=== PATIENT | male | born 1995 | race Two or more races ===

== ENCOUNTER 2024-10-08 23:01 | Emergency (ER) | payer MEDICAID ==
[~2024-10-08] VITALS: Ht 165.1 cm; Wt 58.0 kg
[2024-10-08 23:08] VITALS: O2SAT 98
[2024-10-08 23:20] VITALS: BP 115/88; PULSE 73; RESP 18; TEMP 36.6; O2SAT 97
[2024-10-08] MEDS ORDERED: HYDR-459 MT (23:45)
[2024-10-08] MEDS ORDERED: LORAZEPAM 1MG TABLET PO ONE (23:45)
[2024-10-09] MEDS ORDERED: ALPRAZOLAM 0.5 MG TABLET PO ONE
[2024-10-09] MEDS: ALPRAZOLAM 0.25 MG TABLET PO NR (00:11)
[2024-10-09] MEDS ORDERED: QUET25TA MT (21:54)
== END 2024-10-09 00:26 | disposition home or self-care (01) ==
LOC: ER 23:01
DX: Z76.0 Encounter for issue of repeat prescription (principal); F41.9 Anxiety disorder, unspecified; F20.9 Schizophrenia, unspecified; F31.9 Bipolar disorder, unspecified; F41.0 Panic disorder [episodic paroxysmal anxiety]
CPT/HCPCS: 99283

== ENCOUNTER 2024-10-09 20:50 | Emergency (ER) | payer MEDICAID ==
[~2024-10-09] VITALS: Ht 167.6 cm; Wt 60.2 kg
[~2024-10-09 20:50] MED LIST: HYDR-459 MT
[2024-10-09 21:21] VITALS: O2SAT 99
[2024-10-09 21:22] VITALS: BP 116/79; PULSE 87; RESP 16; TEMP 37; O2SAT 97
[2024-10-09] MEDS ORDERED: QUET25TA MT (21:54)
[2024-10-09] MEDS: QUETIAPINE FUMARATE 25MG TABLET PO SCH (22:12)
[2024-10-09] MEDS: ALPRAZOLAM 0.5 MG TABLET PO ONE (22:13)
== END 2024-10-09 22:16 | disposition home or self-care (01) ==
LOC: ER 20:50
DX: F41.9 Anxiety disorder, unspecified (principal); F12.10 Cannabis abuse, uncomplicated; F31.9 Bipolar disorder, unspecified; Z76.0 Encounter for issue of repeat prescription; Z88.3 Allergy status to other anti-infective agents
CPT/HCPCS: 99283

== ENCOUNTER 2024-10-10 16:20 | Emergency (ER) | payer MEDICAID ==
[~2024-10-10] VITALS: Ht 165.1 cm; Wt 58.9 kg
[~2024-10-10 16:20] MED LIST changes: +QUET25TA MT
[2024-10-10 16:34] VITALS: TEMP 37.1; O2SAT 100
[2024-10-10] MEDS: ALPRAZOLAM 0.5 MG TABLET PO ONE (19:31)
[2024-10-10 19:43] VITALS: BP 114/78; PULSE 57; RESP 12; O2SAT 97
== END 2024-10-10 19:42 | disposition home or self-care (01) ==
LOC: ER 16:20
DX: F41.9 Anxiety disorder, unspecified (principal); F12.10 Cannabis abuse, uncomplicated; F31.9 Bipolar disorder, unspecified; Z91.048 Other nonmedicinal substance allergy status
CPT/HCPCS: 99283

== ENCOUNTER 2024-10-11 10:34 | Emergency (ER) | payer MEDICAID ==
[~2024-10-11] VITALS: Ht 165.1 cm; Wt 59.0 kg
[2024-10-11 11:01] VITALS: O2SAT 98
[2024-10-11] MEDS: ALPRAZOLAM 0.25 MG TABLET PO ONE (11:34)
[2024-10-11 11:37] VITALS: BP 108/71; PULSE 60; RESP 20; O2SAT 98
== END 2024-10-11 12:12 | disposition home or self-care (01) ==
LOC: ER 10:34
DX: F41.9 Anxiety disorder, unspecified (principal); Z76.0 Encounter for issue of repeat prescription; F20.9 Schizophrenia, unspecified; F12.90 Cannabis use, unspecified, uncomplicated; F31.9 Bipolar disorder, unspecified; Z79.899 Other long term (current) drug therapy; Z87.891 Personal history of nicotine dependence
CPT/HCPCS: 99283

== ENCOUNTER 2024-10-12 19:57 | Emergency (ER) | payer MEDICAID ==
[~2024-10-12] VITALS: Ht 165.1 cm; Wt 59.0 kg
[2024-10-12 19:59] VITALS: O2SAT 97
[2024-10-12 20:25] VITALS: BP 126/62; PULSE 58; RESP 18; TEMP 36.9; O2SAT 100
[2024-10-12] MEDS ORDERED: ALPRAZOLAM 0.25 MG TABLET PO ONE (21:30)
[2024-10-12] MEDS: ALPRAZOLAM 0.5 MG TABLET PO ONE (22:03)
== END 2024-10-12 22:09 | disposition home or self-care (01) ==
LOC: ER 19:57
DX: Z00.8 Encounter for other general examination (principal); F12.90 Cannabis use, unspecified, uncomplicated; F20.9 Schizophrenia, unspecified; Z79.899 Other long term (current) drug therapy
CPT/HCPCS: 99283

== ENCOUNTER 2024-10-13 10:34 | Emergency (ER) | payer MEDICAID ==
[~2024-10-13] VITALS: Ht 165.1 cm; Wt 58.0 kg
[2024-10-13 10:57] VITALS: O2SAT 100
[2024-10-13 11:14] VITALS: BP 105/65; PULSE 53; RESP 16; TEMP 36.8; O2SAT 98
[2024-10-13] MEDS ORDERED: ALPRAZOLAM 0.5 MG TABLET PO ONE (11:30)
[2024-10-13] MEDS: ALPRAZOLAM 0.25 MG TABLET PO NR (11:45)
== END 2024-10-13 11:48 | disposition home or self-care (01) ==
LOC: ER 10:34
DX: F41.8 Other specified anxiety disorders (principal); Z76.0 Encounter for issue of repeat prescription; F32.A Depression, unspecified; F12.90 Cannabis use, unspecified, uncomplicated; Z79.899 Other long term (current) drug therapy
CPT/HCPCS: 99283

== ENCOUNTER 2024-10-15 19:59 | Emergency (ER) | payer MEDICAID ==
[~2024-10-15] VITALS: Ht 165.1 cm; Wt 59.0 kg
[2024-10-15 20:06] VITALS: O2SAT 96
[2024-10-15] MEDS: ALPRAZOLAM 0.5 MG TABLET PO ONE (22:02)
[2024-10-15 22:04] VITALS: BP 114/77; PULSE 60; RESP 18; TEMP 37; O2SAT 98
== END 2024-10-15 22:05 | disposition home or self-care (01) ==
LOC: ER 19:59
DX: F41.1 Generalized anxiety disorder (principal); Z76.0 Encounter for issue of repeat prescription; F20.9 Schizophrenia, unspecified; Z79.899 Other long term (current) drug therapy
CPT/HCPCS: 99283

== ENCOUNTER 2024-10-16 11:41 | Emergency (ER) | payer MEDICAID ==
[~2024-10-16] VITALS: Ht 165.1 cm; Wt 59.0 kg
[2024-10-16 11:46] VITALS: O2SAT 98
[2024-10-16] MEDS ORDERED: ALPRAZOLAM 0.5 MG TABLET PO ONE (13:15)
[2024-10-16] MEDS: ALPRAZOLAM 0.25 MG TABLET PO NR (13:45)
[2024-10-16 13:58] VITALS: BP 109/66; PULSE 58; RESP 12; TEMP 37; O2SAT 99
== END 2024-10-16 14:00 | disposition home or self-care (01) ==
LOC: ER 11:41
DX: F41.9 Anxiety disorder, unspecified (principal); F20.9 Schizophrenia, unspecified; F12.90 Cannabis use, unspecified, uncomplicated; Z79.899 Other long term (current) drug therapy
CPT/HCPCS: 99283; A4606

== ENCOUNTER 2024-10-17 19:54 | Emergency (ER) | payer MEDICAID ==
[~2024-10-17] VITALS: Ht 165.1 cm; Wt 59.0 kg
[2024-10-17 20:00] VITALS: O2SAT 97
[2024-10-17 20:39] VITALS: BP 134/82; PULSE 80; RESP 18; TEMP 36.8; O2SAT 100
[2024-10-17] MEDS ORDERED: HALOPERIDOL LACTATE 5MG/ML VIAL IM STA (20:45)
== END 2024-10-17 21:00 ==
LOC: ER 19:54
DX: R45.851 Suicidal ideations (principal); Z53.21 Procedure and treatment not carried out due to patient leaving prior to being seen by health care provider

== ENCOUNTER 2025-05-25 13:43 | Emergency (ER) | payer SELFPAY ==
[~2025-05-25] VITALS: Ht 170.2 cm; Wt 64.0 kg
[2025-05-25 13:45] VITALS: BP 158/88; PULSE 120; RESP 16; TEMP 36.8; O2SAT 98
[2025-05-25] MEDS ORDERED: CYCL10TA21 MT (21:30)
[2025-05-25] MEDS ORDERED: IBUP-1455 MT (21:30)
== END 2025-05-25 16:25 | disposition left against medical advice (07) ==
LOC: ER 13:43
DX: M79.662 Pain in left lower leg (principal); Z53.21 Procedure and treatment not carried out due to patient leaving prior to being seen by health care provider
CPT/HCPCS: 99281; A4606

== ENCOUNTER 2025-05-25 18:05 | Emergency (ER) | payer SELFPAY ==
[~2025-05-25] VITALS: Ht 165.1 cm; Wt 61.0 kg
[2025-05-25 18:07] VITALS: O2SAT 100
[2025-05-25] MEDS ORDERED: KETOROLAC 15MG/ML VIAL IM ONE (20:45)
[2025-05-25] MEDS ORDERED: IBUP-1455 MT (21:30)
[2025-05-25] MEDS ORDERED: CYCL10TA21 MT (21:30)
[2025-05-25] MEDS: IBUPROFEN 600MG TABLET PO ONE (21:31)
[2025-05-25] MEDS: ACETAMINOPHEN 325MG TABLET PO ONE (21:31)
[2025-05-25 22:03] VITALS: BP 108/70; PULSE 63; RESP 16; TEMP 36.7; O2SAT 100
== END 2025-05-25 22:06 | disposition home or self-care (01) ==
LOC: ER 18:05
DX: S80.12XA Contusion of left lower leg, initial encounter (principal); M25.511 Pain in right shoulder; F41.9 Anxiety disorder, unspecified; F20.9 Schizophrenia, unspecified; F12.90 Cannabis use, unspecified, uncomplicated; Z79.899 Other long term (current) drug therapy; X58.XXXA Exposure to other specified factors, initial encounter; Y93.89 Activity, other specified; Y92.89 Other specified places as the place of occurrence of the external cause; Y99.8 Other external cause status
CPT/HCPCS: 99284; 73030; 73562; A6449

== ENCOUNTER 2025-05-25 23:11 | Emergency (ER) | payer SELFPAY ==
[~2025-05-25] VITALS: Ht 165.1 cm; Wt 59.3 kg
[~2025-05-25 23:11] MED LIST changes: +CYCL10TA21 MT; +IBUP-1455 MT
[2025-05-25 23:15] VITALS: O2SAT 99
[2025-05-25] MEDS ORDERED: HYDROXYZINE 25MG TABLET PO ONE (23:45)
[2025-05-26] MEDS: HYDROXYZINE 25MG TABLET PO NR (00:18)
[2025-05-26 00:23] VITALS: BP 103/63; PULSE 60; RESP 18; TEMP 36.8; O2SAT 98
== END 2025-05-26 00:24 | disposition home or self-care (01) ==
LOC: ER 23:11
DX: F41.9 Anxiety disorder, unspecified (principal); F20.9 Schizophrenia, unspecified; F41.0 Panic disorder [episodic paroxysmal anxiety]; Z79.899 Other long term (current) drug therapy; F12.90 Cannabis use, unspecified, uncomplicated
CPT/HCPCS: 99283

== ENCOUNTER 2025-05-26 02:08 | Emergency (ER) | payer SELFPAY ==
[2025-05-26 02:16] VITALS: PULSE 64; RESP 18; O2SAT 99
[2025-05-26] MEDS: CYCLOBENZAPRINE 10MG TABLET PO ONE (02:39)
== END 2025-05-26 05:28 | disposition home or self-care (01) ==
LOC: ER 02:11
DX: S09.8XXA Other specified injuries of head, initial encounter (principal); M54.2 Cervicalgia; M54.9 Dorsalgia, unspecified; F20.9 Schizophrenia, unspecified; F41.9 Anxiety disorder, unspecified; Q76.49 Other congenital malformations of spine, not associated with scoliosis; Z59.02 Unsheltered homelessness; Z79.899 Other long term (current) drug therapy; Y09 Assault by unspecified means; Y93.89 Activity, other specified; Y92.89 Other specified places as the place of occurrence of the external cause; Y99.8 Other external cause status
CPT/HCPCS: 71045; 72128; 72131; 99284

== ENCOUNTER 2025-05-26 12:34 | Emergency (ER) | payer SELFPAY ==
[~2025-05-26] VITALS: Ht 165.1 cm; Wt 60.0 kg
[2025-05-26 12:45] VITALS: BP 114/74; TEMP 36.7; O2SAT 100
[2025-05-26 12:46] VITALS: PULSE 98; RESP 18; O2SAT 99
== END 2025-05-26 17:06 | disposition left against medical advice (07) ==
LOC: ER 12:34
DX: F41.9 Anxiety disorder, unspecified (principal)
CPT/HCPCS: 99281